=== PATIENT | female | born 1990 | race Caucasian/White ===

== ENCOUNTER 2023-05-25 18:27 | Emergency (ER) | payer BC, SELFPAY ==
[2023-05-25 18:32] VITALS: BP 145/97; PULSE 125; RESP 20; TEMP 37; O2SAT 96; BMI 37.2
[2023-05-25] MEDS: ketorolac 60 mg/2 mL INJ IM (19:25)
[2023-05-25] MEDS: lidocaine 2% INJ 20 mL INJECTION (19:29)
[2023-05-25 19:45] LABS: D Dimer 0.39 ug/mLFEU (0-0.59)
--- NOTE | 2023-05-25 20:02 | W.ED.SKABFB ---
Documented by User: JEANINE Dodge 05/25/23 20:12 HPI - Skin/Abscess/Foreign Bdy General: Chief complaint: Skin/Abscess/Foreign Body Stated complaint: pain spider bite Time Seen by Provider: 05/25/23 18:32 Source: patient Mode of arrival: ambulatory Limitations: no limitations History of Present Illness: Patient is a 32-year-old female presenting to the emergency department due to abscess to left thigh onset 2 days. Patient states she believes she was bit by a spider, as she has noticed that the lesion has become increasingly more painful and swollen over the past couple days. She did not visualize an insect. She has been taking Tylenol for pain, with minimal relief. She denies any fevers, nausea or vomiting, or any other symptoms at this time. MD complaint: abscess/boil Onset (ago): day(s) Tetanus up to date: yes Location: LLE Severity scale (1-10): 10 Quality: sharp Pain Consistency: constant Associated symptoms: Reports no associated symptoms; Deny chills, fever(s), nausea or vomiting Review of Systems General: Reports: 10 or more systems reviewed and unremarkable except in HPI and below Const: Denies: fever(s), chills or fatigue Eyes: Denies: change in vision ENMT: Denies: throat pain, ear or mastoid pain or nasal discharge Card: Denies: chest pain, palpitations, swelling of feet/ankles or lightheadedness Resp: Denies: dyspnea, productive cough or wheezing GI: Denies: abdominal pain, nausea, vomiting, diarrhea or constipation : Denies: flank pain, difficulty voiding, dysuria or urinary frequency Musc: Denies: neck pain, back pain or joint pain Skin/Breast: Reports: skin tenderness, skin swelling and new lesions (Abscess to left thigh); Denies: rash Neuro: Denies: headache(s), numbness in extremities or weakness in extremities PFSH ED PFSH: Family History Father Diabetes Hypertension Stroke CAD (coronary artery disease) Hyperlipidemia Mother Hypertension Cancer Grandmother CAD (coronary artery disease) Grandfather Cancer Social History Smoking and tobacco/nicotine status: current every day tobacco/nicotine user cigarettes Alcohol intake: current Alcohol intake frequency: holidays/special occasions only Substance/Drug Use: never Physical Exam Const: COMMON NORMALS: no acute distress, patient oriented x3 and no limitations GENERAL APPEARANCE: cooperative, comfortable and well developed ORIENTATION/CONSCIOUSNESS: Yes awake, Yes oriented to person, Yes oriented to place and Yes oriented to time HENMT: COMMON NORMALS: normocephalic, atraumatic and hearing grossly normal bilaterally HEAD & SCALP: normocephalic and atraumatic Eye: COMMON NORMALS: Equal, round and reactive pupils present, EOMs intact bilaterally and conjunctivae normal CONJUNCTIVA: Yes conjunctivae normal PUPIL: Yes Equal, round and reactive pupils present Neck/C-Spine: COMMON NORMALS: full ROM, supple and no JVD Resp: COMMON NORMALS: normal respiratory effort, No retractions, No use of accessory muscles and clear to auscultation bilaterally AUSCULTATION: clear to auscultation bilaterally Cardio: COMMON NORMALS: no JVD, regular rate, regular rhythm, No clicks present (Cardio), No murmurs present (Cardio) and No rub (Cardio) RATE: regular rate RHYTHM: regular rhythm Extremity: COMMON NORMALS: normal to inspection, full ROM and capillary refill normal Neuro: COMMON NORMALS: patient oriented x3, moves all extremities, no focal motor deficits and no sensory deficits noted SENSORIUM/ORIENTATION: Yes oriented to person, Yes oriented to place and Yes oriented to time Psych: COMMON NORMALS: mental status grossly normal and Normal thought process present THOUGHT PROCESS: Normal thought process present Skin: NARRATIVE SKIN EXAM: There is a fluctuant, dime sized abscess noted to the inner left thigh. Minimal surrounding erythema. This lesion is exquisitely tender to the touch. No red streaking noted. No lymphadenopathy. Procedures Abscess I/D Site: lower extremity Side (if applicable): left Local Anesthetic: lidocaine 2% Amount of anesthesia used (mL): 2 Technique: incised with #11 blade Amount of fluid expressed (mL): 5 Irrigation: Yes Packing used?: none Course Vital Signs: Vital signs: Vital Signs Temperature 98.6 F 05/25/23 18:32 Pulse Rate 126 H 05/25/23 20:27 Respiratory Rate 20 H 05/25/23 18:32 Blood Pressure 158/88 05/25/23 20:27 Pulse Oximetry 95 05/25/23 20:27 Oxygen Delivery Me thod Room Air 05/25/23 18:32 MDM - Skin/Abscess/Foreign Bdy Medicial Decision Making This patient seen and evaluated due to an abscess to the left thigh noticed for past couple days. Exam did show a fluctuant abscess in need of draining. Patient has remained stable throughout her ED course. She was reporting some leg pain and chest pain, ruled out any acute process here with a negative D-dimer. I did perform a bedside I&D, see procedure note. Patient tolerated procedure well and went reports immediate relief of the pain. Will start her on an antibiotic and informed her to follow-up with primary care as needed. Did give her strict return precautions in regards to signs of infection. Patient agrees with plan will be discharged home. Lab Data I reviewed the patient's lab results. Laboratory Results D-Dimer 0.39 ug/mLFEU (0-0.59) 05/25/23 19:23 No radiology studies performed this visit Discharge Plan Discharge Patient Disposition: Home Clinical Impression: Abscess Condition: Stable Prescriptions: New Bactrim DS 800-160 mg tablet 1 tab PO BID 7 Days Qty: 14 0RF No Action amoxicillin-pot clavulanate 875-125 mg tablet 1 tab PO BID 10 Days Qty: 20 0RF Discharge Orders: Discharge ED (Routine); Ordered 05/25/23 Ordered By: Vitaly Fatima Referrals: Grant Jean-Baptiste DO [Primary Care Provider] - Discharge Diet: Usual diet Discharge Activity: Increase activity as tolerated Patient Instructions: Abscess (ED), Incision and Drainage (ED) Activity Restrictions/Additional Instructions: Bactrim as prescribed. Ice for added relief. Tylenol or ibuprofen for pain. You may clean wound with soap and water, however keep dry. Please return if you notice any signs of infection such as increased redness or significant increase in pain. Otherwise, follow-up with primary care. Coding Level of Care Code ED [employer] for [employer] Documented by User: Calvin Schwartz DO 05/26/23 06:04 HPI - Skin/Abscess/Foreign Bdy General: Chief complaint: Skin/Abscess/Foreign Body Stated complaint: pain spider bite Time Seen by Provider: 05/25/23 18:32 [facility] ED PFSH: Family History Father Diabetes Hypertension Stroke CAD (coronary artery disease) Hyperlipidemia Mother Hypertension Cancer Grandmother CAD (coronary artery disease) Grandfather Cancer Social History Smoking and tobacco/nicotine status: current every day tobacco/nicotine user cigarettes Alcohol intake: current Alcohol intake frequency: holidays/special occasions only Substance/Drug Use: never Course Vital Signs: Vital signs: Vital Signs Temperature 98.6 F 05/25/23 18:32 Pulse Rate 126 H 05/25/23 20:27 Respiratory Rate 20 H 05/25/23 18:32 Blood Pressure 158/88 05/25/23 20:27 Pulse Oximetry 95 05/25/23 20:27 Oxygen Delivery Me thod Room Air 05/25/23 18:32 MDM - Skin/Abscess/Foreign Bdy Medicial Decision Making This patient seen and evaluated due to an abscess to the left thigh noticed for past couple days. Exam did show a fluctuant abscess in need of draining. Patient has remained stable throughout her ED course. She was reporting some leg pain and chest pain, ruled out any acute process here with a negative D-dimer. I did perform a bedside I&D, see procedure note. Patient tolerated procedure well and went reports immediate relief of the pain. Will start her on an antibiotic and informed her to follow-up with primary care as needed. Did give her strict return precautions in regards to signs of infection. Patient agrees with plan will be discharged home. Lab Data Laboratory Results D-Dimer 0.39 ug/mLFEU (0-0.59) 05/25/23 19:23 Discharge Plan Discharge Patient Disposition: Home Clinical Impression: Abscess Condition: Stable Prescriptions: New Bactrim DS 800-160 mg tablet 1 tab PO BID 7 Days Qty: 14 0RF No Action amoxicillin-pot clavulanate 875-125 mg tablet 1 tab PO BID 10 Days Qty: 20 0RF Discharge Orders: Discharge ED (Routine); Ordered 05/25/23 Ordered By: Vitaly Fatima Referrals: Grant Jean-Baptiste DO [Primary Care Provider] - Discharge Diet: Usual diet Discharge Activity: Increase activity as tolerated Patient Instructions: Abscess (ED), Incision and Drainage (ED) Activity Restrictions/Additional Instructions: Bactrim as prescribed. Ice for added relief. Tylenol or ibuprofen for pain. You may clean wound with soap and water, however keep dry. Please return if you notice any signs of infection such as increased redness or significant increase in pain. Otherwise, follow-up with primary care. Coding Level of Care Code ED [employer] for Kyrie Lopez
[2023-05-25] MEDS: sulfamethoxazole-trimeth DS 160-800 mg Tablet 1 TAB PO (20:16)
[2023-05-25 20:27] VITALS: BP 158/88; PULSE 126; O2SAT 95
== END 2023-05-25 20:28 | disposition home or self-care (01) ==
PROVIDERS: Emergency Provider Physician Assistant; PCP Family Medicine
DX: L02.416 Cutaneous abscess of left lower limb (principal); F17.210 Nicotine dependence, cigarettes, uncomplicated
CPT/HCPCS: 10060; 36415; 85378; 96372; 99284; J1885

== ENCOUNTER → 2023-12-06 12:06 | Outpatient (BNVA) | payer BC, SELFPAY | PROVIDERS: PCP Family Medicine; Visit Provider Nurse Practitioner Family | DX: R00.2 Palpitations | CPT/HCPCS: 93005 ==

== ENCOUNTER → 2023-12-09 08:54 | Outpatient (BNVA) | payer BC, SELFPAY | PROVIDERS: PCP Family Medicine; Visit Provider Nurse Practitioner Family | DX: I10 Essential (primary) hypertension (principal) | CPT/HCPCS: 80053; 80061; 84443; 85025 ==

== ENCOUNTER → 2023-12-13 11:00 | Outpatient (BNVA) | payer BC, SELFPAY | PROVIDERS: PCP Family Medicine; Visit Provider Nurse Practitioner Family | DX: R73.09 Other abnormal glucose (principal) | CPT/HCPCS: 83036 ==